=== PATIENT | male | born 1970 | race Two or more races ===

== ENCOUNTER 2017-11-01 20:49 | Emergency (ER) | payer BC ==
[2017-11-01 21:46] VITALS: TEMP 98.6
[2017-11-01] MEDS ORDERED: Sodium Chloride 0.9% 1,000 ML IV ONE (21:51)
[2017-11-01 22:13] LABS: BASO # 0.1 K/uL (0.0-0.2); BASO % 0.8 % (0.0-2.0); EOS # 0.6 K/uL (0.0-0.7); EOS % 5.2 % (0.0-4.0); HEMOGLOBIN 14.5 g/dL (12.0-18.0); LYMPH # 2.7 K/uL (1.0-4.3); LYMPH % 23.3 % (20.0-40.0); MEAN CELL VOLUME 93.4 fL (80.0-94.0); MEAN CORPUSCULAR HGB CONC 34.2 g/dL (33.0-37.0); MEAN PLATELET VOLUME 7.8 fL (7.2-11.7); MONO % 8.8 % (0.0-10.0); NEUT # 7.3 K/uL (1.8-7.0); NEUT % 61.9 % (50.0-75.0); RBC 4.55 Mil/uL (4.40-5.90); RED CELL DISTRIBUTION WIDTH 13.4 % (11.5-14.5); WHITE BLOOD COUNT 11.7 K/uL (4.8-10.8)
[2017-11-01 22:36] LABS: ALB/GLOB RATIO 1.3 (1.0-2.1); ALBUMIN 4.1 g/dL (3.5-5.0); ALT/SGPT 58 U/L (21-72); AST/SGOT 27 U/L (17-59); BLOOD UREA NITROGEN 17 mg/dL (9-20); CALCIUM 9.5 mg/dl (8.6-10.4); GFR AFRICAN-AMERICAN > 60; GFR NON-AFRICAN AMERICAN > 60; LIPASE 119 U/L (23-300)
[2017-11-01 23:19] LABS: URINE BILIRUBIN NEGATIVE (NEGATIVE); URINE BLOOD 2+ (NEGATIVE); URINE CLARITY Clear (Clear); URINE COLOR Yellow (YELLOW); URINE GLUCOSE (UA) NORMAL (Normal); URINE LEUKOCYTE ESTERASE NEG Leu/uL (Negative); URINE PROTEIN NEGATIVE (NEGATIVE); URINE UROBILINOGEN NORMAL mg/dL (0.2-1.0)
--- NOTE | 2017-11-01 23:44 | C.PDOC ---
Time Seen by Provider: 11/01/17 21:43 Chief Complaint (Nursing): Back Pain History Per: Patient Onset/Duration Of Symptoms: Days (2), Intermittent Episodes Current Symptoms Are (Timing): Still Present Severity: Moderate Location Of Pain/Discomfort: Other (Left flank) Quality Of Discomfort: "Pain" Associated Symptoms: Nausea, Vomiting, Back Pain, Urinary Symptoms Exacerbating Factors: None Alleviating Factors: None Additional History Per: Prior Records Past Medical History Reviewed: Historical Data, Nursing Documentation, Vital Signs Vital Signs: Last Vital Signs Temp 98.6 F 11/01/17 21:36 Pulse 78 11/01/17 21:36 Resp 18 11/01/17 21:36 BP 149/94 H 11/01/17 21:36 Pulse Ox 97 11/01/17 23:44 - Medical History PMH: Kidney Stones Surgical History: No Surg Hx Family History: States: Unknown Family Hx - Social History Hx Tobacco Use: No Hx Alcohol Use: No Hx Substance Use: No - Immunization History Hx Tetanus Toxoid Vaccination: No Hx Influenza Vaccination: No Hx Pneumococcal Vaccination: No Review Of Systems Except As Marked, All Systems Reviewed And Found Negative. Constitutional: Negative for: Fever, Weakness Cardiovascular: Negative for: Chest Pain Respiratory: Negative for: Shortness of Breath Gastrointestinal: Positive for: Nausea, Vomiting. Negative for: Diarrhea Genitourinary: Positive for: Hematuria. Negative for: Scrotal Pain Musculoskeletal: Positive for: Back Pain. Negative for: Neck Pain Skin: Negative for: Rash Neurological: Negative for: Weakness, Numbness Physical Exam - Physical Exam Appears: Non-toxic, No Acute Distress Skin: Normal Color, Warm, Dry, No Rash Head: Atraumatic, Normacephalic Eye(s): bilateral: PERRL, EOMI Neck: Normal ROM, Supple Cardiovascular: Rhythm Regular Respiratory: Normal Breath Sounds, No Accessory Muscle Use Gastrointestinal/Abdominal: Soft, No Tenderness Back: No CVA Tenderness Extremity: Normal ROM Neurological/Psych: Oriented x3, Normal Motor, Normal Sensation ED Course And Treatment - Laboratory Results Result Diagrams: 11/01/17 22:09 11/01/17 22:09 Interpretation Of Abnormal: Microscopic hematuria O2 Sat by Pulse Oximetry: 97 Pulse Ox Interpretation: Normal - CT Scan/US CT abd/pelv Other Rad Studies (CT/US): Read By Radiologist, Radiology Report Reviewed CT/US Interpretation: IMPRESSION: 1. Approximately 6 mm calculus in the proximal left ureter, just below the ureteropelvic junction,. causing mild left hydroureteronephrosis. 2. Tiny right nephrolithiasis, no hydronephrosis. 3. Possible cholelithiasis. Progress - Interventions Interventions:: Observation, Intravenous fluid - Medications Administered Intravenous: Antiemetic, NSAID - Data Reviewed Data Reviewed: Lab, Diagnostic imaging, Old records - Patient Status Patient status: Mostly improved - Continuity of Care Discussed patient case with:: Patient, Family-HIPPA compliant, ED Nurse - Patient Plan Patient Plan: Discharge, F/U with PCP Disposition Counseled Patient/Family Regarding: Studies Performed, Diagnosis, Need For Followup, Rx Given - Disposition Referrals: Jerald Sanchez MD [Staff Provider] - Disposition: HOME/ ROUTINE Disposition Time: 00:23 Condition: STABLE Additional Instructions: Drink plenty of fluids. Follow up with a Urologist this week for further evaluation and treatment. Return to the ER if you develop fever, not tolerating fluids, worsening of symptoms or if you have any other concerns. Prescriptions: Naproxen [Naprosyn] 1 tab PO BID PRN #20 tab PRN Reason: Pain oxyCODONE/Acetaminophen [Percocet 5/325 mg Tab] 1 tab PO QID PRN #20 tab PRN Reason: Pain, Severe (8-10) Tamsulosin [Flomax] 0.4 mg PO HS #10 cap Instructions: Renal Colic (DC) Forms: [employer] (Vietnamese) - Clinical Impression Clinical Impression: Calculus of proximal left ureter
[2017-11-02 00:50] VITALS: BP 156/75; PULSE 67; RESP 12; O2SAT 100
--- NOTE | 2017-11-02 13:16 | CT ---
Date of service: 11/01/2017 PROCEDURE: CT Abdomen and Pelvis without intravenous contrast HISTORY: Left flank pain. h/o kidney stones COMPARISON: 02/22/2014. TECHNIQUE: CT scan of the abdomen and pelvis was performed without administration of intravenous contrast. Oral contrast was not administered. Coronal and sagittal reformatted images were obtained. . Radiation dose: Total exam DLP = 488.62 mGy-cm. This CT exam was performed using one or more of the following dose reduction techniques: Automated exposure control, adjustment of the mA and/or kV according to patient size, and/or use of iterative reconstruction technique. FINDINGS: LOWER THORAX: There is dependent atelectasis in the right lung base, otherwise the visualized lungs are clear. LIVER: Normal in size. No intrahepatic ductal dilatation. GALLBLADDER AND BILE DUCTS: No calcified gallstones. No biliary dilatation PANCREAS: Normal in size. No ductal dilatation. SPLEEN: Normal in size. ADRENALS: Normal in size. No discrete nodule. KIDNEYS AND URETERS: Both kidneys are normal in size. There is a 3 mm nonobstructing stone in the lower pole of the right kidney. There is a 5 mm obstructing stone in the left proximal ureteral with dilatation of the proximal ureteral, mild hydronephrosis and perinephric fat stranding. VASCULATURE: No aortic aneurysm. BOWEL: The small bowel loops are normal in caliber. There is fecalization of small bowel contents with The colon is normal in size. No bowel dilatation or wall thickening. No bowel obstruction. APPENDIX: Normal appendix. PERITONEUM: No free fluid. No free air. LYMPH NODES: No enlarged lymph nodes. BLADDER: Well distended and grossly normal in appearance. REPRODUCTIVE: The prostate gland is normal in size with central coarse calcifications. BONES: No acute fracture. OTHER FINDINGS: None. IMPRESSION: 1. Mild left obstructive uropathy resulting from a 5 mm stone in the proximal ureter. 2. 3 mm nonobstructing stone in the lower pole of the right kidney. A preliminary report was provided by [employer]
== END 2017-11-02 00:49 | disposition home or self-care (01) ==
LOC: C.ER 20:49
DX: N13.2 Hydronephrosis with renal and ureteral calculous obstruction (principal)
CPT/HCPCS: 74176; 80053; 81001; 83690; 85025; 87086; 96361; 96374; 96375; 99283; J1885; J2405; J7030

== ENCOUNTER 2017-11-06 15:27 | Day surgery (SDC) | payer BC ==
--- NOTE | 2017-11-06 15:48 | C.PDOC ---
History Of Present Illness 47 yo male w/PMHx of Left side kidney stone was sent to ED by Urologist for urostomy or lithotrypsy. Pt reports, was diagnosed with obstructive left proximal ureter kidney stone 3 days ago, pain intermittent. Denies fever, chills, abd. pain, N/V, UTI sx, hematuria, testicular swelling or pain. Ambulate to ED for evaluation, in mild pain. Time Seen by Provider: 11/06/17 15:35 Chief Complaint (Nursing): Male Genitourinary History Per: Patient Past Medical History Reviewed: Historical Data, Nursing Documentation, Vital Signs Vital Signs: Last Vital Signs Temp 98.4 F 11/06/17 15:33 Pulse 83 11/06/17 15:33 Resp 16 11/06/17 15:33 BP 145/96 H 11/06/17 15:33 Pulse Ox 98 11/06/17 15:51 - Medical History PMH: Kidney Stones Denies: Chronic Kidney Disease Family History: States: Unknown Family Hx - Social History Hx Tobacco Use: No Hx Alcohol Use: No Hx Substance Use: No - Immunization History Hx Tetanus Toxoid Vaccination: No Hx Influenza Vaccination: No Hx Pneumococcal Vaccination: No Review Of Systems Except As Marked, All Systems Reviewed And Found Negative. Constitutional: Negative for: Fever, Chills ENT: Negative for: Throat Pain, Throat Swelling Cardiovascular: Negative for: Chest Pain, Palpitations Respiratory: Negative for: Cough, Shortness of Breath Gastrointestinal: Negative for: Nausea, Vomiting, Abdominal Pain, Diarrhea Genitourinary: Negative for: Hematuria Musculoskeletal: Positive for: Back Pain. Negative for: Neck Pain Skin: Negative for: Rash Physical Exam - Physical Exam Appears: Well, Non-toxic, No Acute Distress Skin: Normal Color, Warm, Dry, No Rash Head: Normacephalic Eye(s): bilateral: PERRL Nose: No Flaring, No Discharge Oral Mucosa: Moist, No Drooling Throat: No Erythema, No Drooling Neck: Normal ROM, Trachea Midline, Supple Cardiovascular: Rhythm Regular Respiratory: No Decreased Breath Sounds, No Accessory Muscle Use, No Stridor Gastrointestinal/Abdominal: Soft, No Tenderness, No Distention, No Guarding Back: No CVA Tenderness, Other (mild left flank tenderness) Extremity: No Pedal Edema Neurological/Psych: Oriented x3, Normal Speech ED Course And Treatment - Laboratory Results Result Diagrams: 11/06/17 16:13 O2 Sat by Pulse Oximetry: 98 Pulse Ox Interpretation: Normal Progress Note: Case discussed with , confirmed scheduled procedure and admisison to OR arranged for lithotripsy. Disposition - Disposition Disposition: HOSPITALIZED Disposition Time: 15:47 Condition: STABLE - Clinical Impression Clinical Impression: Urinary tract obstruction due to kidney stone
[2017-11-06 16:04] LABS: URINE BILIRUBIN NEGATIVE (NEGATIVE); URINE BLOOD 2+ (NEGATIVE); URINE CLARITY Clear (Clear); URINE COLOR Yellow (YELLOW); URINE GLUCOSE (UA) NORMAL (Normal); URINE LEUKOCYTE ESTERASE 1+ Leu/uL (Negative); URINE PROTEIN NEGATIVE (NEGATIVE); URINE UROBILINOGEN NORMAL mg/dL (0.2-1.0)
[2017-11-06 16:18] LABS: BASO # 0.1 K/uL (0.0-0.2); BASO % 0.9 % (0.0-2.0); EOS # 0.5 K/uL (0.0-0.7); EOS % 6.1 % (0.0-4.0); HEMOGLOBIN 14.9 g/dL (12.0-18.0); LYMPH # 2.1 K/uL (1.0-4.3); LYMPH % 26.7 % (20.0-40.0); MEAN CELL VOLUME 93.7 fL (80.0-94.0); MEAN CORPUSCULAR HEMOGLOBIN 32.1 pg (27.0-31.0); MEAN CORPUSCULAR HGB CONC 34.2 g/dL (33.0-37.0); MEAN PLATELET VOLUME 7.7 fL (7.2-11.7); MONO # 0.7 K/uL (0.0-0.8); MONO % 8.6 % (0.0-10.0); NEUT # 4.5 K/uL (1.8-7.0); NEUT % 57.7 % (50.0-75.0); NRBC % 0.1 % (0.0-2.0); RBC 4.64 Mil/uL (4.40-5.90); RED CELL DISTRIBUTION WIDTH 13.4 % (11.5-14.5); WHITE BLOOD COUNT 7.9 K/uL (4.8-10.8)
[2017-11-06 16:37] LABS: BLOOD UREA NITROGEN 16 mg/dL (9-20); GFR AFRICAN-AMERICAN > 60; GFR NON-AFRICAN AMERICAN > 60
[2017-11-06] MEDS ORDERED: cefTRIAXone IV 1 gm in Dextros 50 ML IVPB ONE (17:10)
[2017-11-06] MEDS ORDERED: Iohexol 240 (50 ml) ONE (17:10)
[2017-11-06] MEDS ORDERED: Lactated Ringer's 1,000 ML IV SCH (17:15)
[2017-11-06] MEDS ORDERED: Propofol 10 mg/ml Inj (20 ML) ONE ×2 (17:40→17:54)
[2017-11-06] MEDS ORDERED: Oxycodone/Acetaminophen 5/325 mg Tab PO PRN (17:48)
[2017-11-06 18:36] VITALS: O2SAT 100
--- NOTE | 2017-11-06 18:42 | RAD ---
Date of service: 11/06/2017 PROCEDURE: Intraoperative fluoroscopy HISTORY: LT URETERAL STONE COMPARISON: Not available TECHNIQUE: Intraoperative fluoroscopy was provided for left ureteral stent placement. Total time of fluoroscopy was 29.2 seconds. Cumulative dose was 0.71163 mGy meter sq. FINDINGS: Multiple fluoroscopic spot films are submitted demonstrating progressive placement of left ureteral stent. IMPRESSION: Fluoroscopy provided.
[2017-11-06 19:14] VITALS: BP 137/90; PULSE 74; RESP 13
[2017-11-06 20:08] VITALS: TEMP 98.5
--- NOTE | 2017-11-07 10:04 | RAD ---
Date of service: 11/06/2017 HISTORY: LT URETERAL STONE COMPARISON: No prior. FINDINGS: BOWEL: Nonobstructive bowel gas pattern identified. 1 cm ovoid calcification is questioned overlying the left renal silhouette with a small calcification overlying the edge of the left psoas muscle margin. This may represent a ureteral calculus though may be extrinsic as well. Clinically correlate further. Phlebolith like calcifications are seen at the inferior pelvis soft tissues, right greater than left. No suspicious intra-abdominal calcifications right roque abdomen. BONES: Levoscoliotic lumbar spinal deformity. Mild multilevel lumbar spondylosis identified. OTHER FINDINGS: None. IMPRESSION: Nonobstructive bowel gas pattern. Left flank radiodensities may reflect tube separate uroliths as discussed above.
--- NOTE | 2017-11-08 19:43 | HP ---
Copied To: Macho Owens MD Attending MD: Macho Owens MD UROLOGY EMERGENCY HISTORY AND PHYSICAL CHIEF COMPLAINT: Severe renal colic. HISTORY OF PRESENT ILLNESS: Mr. Monroe is a very pleasant gentlemen, who was in the emergency room and he presented with left hydronephrosis secondary to a proximal ureteral stone. At that time, we saw the patient in the office. Subsequently, he was feeling better. He came to the office. He saw me in the office and we recommended immediate treatment. At that time, we did an ultrasound showing hydronephrosis. We showed him the stone. We discussed with the patient and his . I originally got a phone call about the patient on 11/03/2017 in the morning and offered an immediate office visit as the patient was actually with pain and discomfort, came to the office. We discussed the emergency treatment. However, the patient was hoping that maybe the stone would pass and would just going to take through the pain medication. Today, he called me that pain has worsened, it has gotten much more severe. We then sent the person to the emergency room. Upon seeing the patient through the emergency room, we are bringing him in as an emergency admission. See the below addendum and see the operative note. PAST MEDICAL AND SURGICAL HISTORY: Negative for diabetes, CVA, PA. SOCIAL HISTORY: He lives with his , she works. REVIEW OF SYSTEMS: As listed above. No weight loss, chest pain, or shortness of breath. Essentially negative review of systems noted. MEDICATIONS: See chart. ALLERGIES: NONE. PHYSICAL EXAMINATION: GENERAL: A well-nourished male in no apparent distress. Currently resting comfortably in the [facility]. VITAL SIGNS: Within normal limits and noted in the chart. LUNGS: Clear. HEART: Normal S1 and S2. ABDOMEN: Overall soft. No flank mass appreciated. GENITALIA: Normal male phallus without discharge. No testicular masses. RECTAL: Deferred to cysto, but I will mention now, a 10 to 20 g prostate, soft and smooth. LABORATORY DATA: Labs from the other day. Not received labs yet. They are relatively within normal limits. CT scan as noted has the left hydronephrosis and a very small proximal ureteral stone. In fact, I reviewed the stone with the patient with the x-rays in our computer in the office. DIAGNOSES: 1. Severe asymptomatic renal colic. 2. Left hydronephrosis. We are going to bring the patient as an emergency admission; therefore, we will plan for the discharge. We are going to bring him to the operating room. We will place a stent. I told the patient and the that if the stone is migrated distally, we can perhaps even move the stone and we are going to try to do this, and the minimal we will do is a cysto and retrograde stent. I also explained that sometimes if the stone is small or large can be obstructing, they are also going to need to consider other options. We did discuss shockwave lithotripsy, but at that this point, at this hour, I do not think that will be available plus also with the hydronephrosis and the severe pain, I want to make sure we relieve the obstruction. The plan is as follows: 1. Emergency cystoscopy. 2. Retrograde pyelogram with stent placement. 3. Antibiotic prophylaxis. Further plans to follow. Risks and benefits were discussed with the patient and many options discussed. ADDENDUM See the operative note. It turns out as this patient has basically extravasation from the obstructing stone. We placed the stent successfully. Macho Owens MD
--- NOTE | 2017-11-09 07:09 | OP ---
Copied To: Macho Ownes MD Attending MD: Macho Owens MD PROCEDURE DATE: 11/06/2017 PREOPERATIVE DIAGNOSES: 1. Left hydronephrosis. 2. Left proximal ureteral stone. POSTOPERATIVE DIAGNOSIS: 1. Left hydronephrosis. 2. Left proximal ureteral stone. 3. Spontaneous forniceal rupture. PROCEDURES: Cystoscopy, left retrograde pyelogram, left insertion (with difficulty). COMPLICATIONS: There were no complications. UROLOGY OPERATIVE FINDINGS: 1. Normal anterior urethra. 2. From the verumontanum, no strictures. 3. The verumontanum is minimally visually occlusive, about 2 to 3 cm. 4. The ureteral orifices are within normal limits. 5. Upon injection of a small amount of contrast, the lower pole of the left collecting system filled up nicely, but the upper pole seems to have an extravasation of urine contrast (see the body of the report, but this is not from overdoing it). 6. When we clamped the wire after the contrast (see the body of the report again), when we tried to pass the wire, there was an obstructing stone to the point that we were not able to get the wire pass easily. I took the combination between the open-ended technique and a little extra flushing. At the termination of the procedure, the double-J sent was in good location. INDICATIONS: See history and physical for further details. This is a very pleasant gentleman, I have known about his stone for a while, but today he presented with worsening pain (perhaps, right now secondary to the forniceal rupture). After discussing the options with the patient and his and following him on Thursday afternoon, the best option and my best recommendation for the patient is the above, placement of the stent. DESCRIPTION OF PROCEDURE: As follows: After obtaining informed consent, the patient was placed on table. Routine monitor was placed. Timeout was called. We confirmed the patient positioning. The plan was to do a cysto, retrograde stent, and possible that the stone had migrated through the uteroscopy and possible basketing it later , but in the end, the best option for this patient is placement of a stent. Cystoscope was inserted through the urethra, no strictures are noted. From the . Before we identified the left retrograde, I wanted to make sure difficulty to definitely the stone CAT scan. I reviewed the procedure with more obvious risk of the stone is still in the same exact location as it was probably throughout the CAT scan. The ureteral orifice was identified. We gently inserted contrast. Just with that gentle insertion, there is extravasation of urine (this spontaneous rupture of the fornix). At this point, the lower pole of the kidney filled up well. We 04:15. We tried to pass the wire and on doing so, we could see the multiple stones safe. The wire will not go pass the stone, it drove back on its own. . At this point, I put an open ended ureteral catheter over the wire up to the level of the stone and adjusting back and forth. The wire was adjusted. Still unable to do so. At this point, through the open ended ureteral catheter, I then injected irrigation fluid and a little bit of an extra pressure. With the hope and attention that it would loosen the stone a little bit. Upon doing so that, we removed the irrigation. I now tried again with the wire and at this time, we are successful getting past the stone very gently and carefully and we were able to get up to the kidney. We put the open-ended and the wire and we keep it that for a few seconds . For clarity, the extravasation is not at the level of the stone. We are now on to the kidney, we injected a little more contrast to confirm our location. We had the wire in the lower pole. We removed the open-ended and put a double J stent into it. We confirmed the positioning. Overall, the patient tolerated the procedure well without complication. Bladder was emptied, the scope was removed. The patient tolerated the procedure well without complication. ADDENDUM We are going to also add additional antibiotics given our findings today. Overall, the patient tolerated the procedure well without complication. Macho Owens MD
== END 2017-11-06 20:05 | disposition home or self-care (01) ==
LOC: C.ER 15:27 → C.SDS 16:13
PROVIDERS: ATTEND Urology
DX: N13.2 Hydronephrosis with renal and ureteral calculous obstruction (principal)
CPT/HCPCS: 52005; 74018; 80048; 81001; 85025; 99285; C1725; C1758; C1769; J0696; J1580; J1885